=== PATIENT | female | born 1990 | race Caucasian/White ===

== ENCOUNTER → 2018-02-27 | Outpatient (CLI) | payer BC ==
--- NOTE | 2018-03-12 19:32 | EM ---
EVENT MONITOR Patient was monitored between March 02 and March 06, 2018. The rhythm strip revealed sinus mechanism with single PVCs. There was an episode of sinus tachycardia, but no evidence of significant bradycardia or sustained ventricular tachycardia. ODL / IJN: [id number] /
== END | disposition home or self-care (01) ==
LOC: RADECHMAIN 12:03
PROVIDERS: ATTEND Family Medicine
DX: I49.3 Ventricular premature depolarization (principal)
CPT/HCPCS: 93270; 93271

== ENCOUNTER 2021-03-08 06:05 | Inpatient (IN) | payer BC ==
[2021-03-08] MEDS ORDERED: METHYLERGONOVINE 0.2 MG/ML 1 ML AMP IM PRN (06:22)
[2021-03-08] MEDS ORDERED: CARBOPROST TROMETHAMINE 250 MCG/ML 1 ML AMP IM PRN (06:22)
[2021-03-08] MEDS ORDERED: LIDOCAINE 0.5% (PF) 5 MG/ML (50 ML SDV) SQ PRN (06:22)
[2021-03-08] MEDS ORDERED: TERBUTALINE 1 MG/ML VIAL SQ PRN (06:22)
[2021-03-08] MEDS ORDERED: OXYTOCIN 10 UNIT/ML 1 ML VIAL IM PRN (06:22)
[2021-03-08] MEDS ORDERED: OXYTOCIN 30 UNITS/500 ML NS 30 UNIT in SALINE 1 500ML.BAG IV SCH (06:30)
[2021-03-08] MEDS: LACTATED RINGERS 1,000 ML IV SCH ×2 (06:35→12:05)
[2021-03-08 06:50] LABS: Basophils % (A) 1 %; Eosinophils # (A) 0.1 k/uL (0-0.7); Eosinophils % (A) 1 %; HCT 39.2 % (34.0-46.0); HGB 12.7 gm/dL (11.4-16.0); Lymphocytes # (A) 2.2 k/uL (1.0-4.8); Lymphocytes % (A) 29 %; MCH 27.1 pg (25.0-35.0); MCHC 32.4 g/dL (31.0-37.0); MCV 83.6 fL (80.0-100.0); Mean Platelet Volume 9.7; Monocytes # (A) 0.5 k/uL (0-1.0); Monocytes % (A) 6 %; Neutrophils # (A) 4.5 k/uL (1.3-7.7); Neutrophils % (A) 60 %; Platelet Count 212 k/uL (150-450); Poikilocytosis Slight; RBC 4.69 m/uL (3.80-5.40); RDW 12.8 % (11.5-15.5); WBC 7.5 k/uL (3.8-10.6)
--- NOTE | 2021-03-08 08:29 | P.HPOB ---
History of Present Illness H&P Date: 03/08/21 Chief Complaint: IUP at 41-0/7 weeks This is a 30-year-old 1 para 0 at 41-0/7 weeks that presents to labor and delivery for induction of labor secondary to postdates. Patient has been receiving routine care which has been essentially uncomplicated. This morning patient notes good movement denies vaginal bleeding or loss of fluid. Patient notes irregular contractions. On bloodwork this patient is a blood type of O+, rubella status immune, hepatitis B surface antigen negative, HIV negative, RPR nonreactive, her beta strep cultures negative. Review of Systems Constitutional: Denies chills, Denies fatigue, Denies fever Ears, nose, mouth and throat: Denies headache Cardiovascular: Denies leg edema Respiratory: Denies dyspnea Gastrointestinal: Denies constipation, Denies diarrhea, Denies nausea, Denies vomiting Genitourinary: Reports Past Medical History Past Medical History: No Reported History History of Any Multi-Drug Resistant Organisms: None Reported Additional Past Surgical History / Comment(s): bunyon removal- 2017 Past Anesthesia/Blood Transfusion Reactions: No Reported Reaction Past Psychological History: No Psychological Hx Reported Smoking Status: Never smoker Past Alcohol Use History: None Reported Past Drug Use History: None Reported - Past Family History Mother Family Medical History: No Reported History Medications and Allergies Home Medications Medication Instructions Recorded Confirmed Type Clobetasol Propionate [Temovate 1 applic TOPICAL DAILY PRN 03/08/21 03/08/21 History 0.05% Oint] Pnv,Calcium 72/Iron/Folic Acid 1 each PO DAILY 03/08/21 03/08/21 History [ Plus Tablet] Allergies Allergy/AdvReac Type Severity Reaction Status Date / Time No Known Allergies Allergy Verified 03/08/21 06:20 Exam Osteopathic Statement: *. No significant issues noted on an osteopathic structural exam other than those noted in the History and Physical/Consult. 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 heart tones are noted to be category 1 and she is elyse every 2 minutes. Results Result Diagrams: 03/08/21 06:30 Assessment and Plan (1) Post-dates Current Visit: Yes Status: Acute Code(s): O48.0 - POST-TERM SNOMED Code(s): 39943799 Plan: 30-year-old at 41-0/7 weeks presents for induction of labor. Pitocin i nduction of labor is begun per hospital protocol. Options for analgesia including epidural and Stadol are discussed. Patient will consider. We'll monitor closely and anticipate spontaneous vaginal delivery later today.
[2021-03-08] MEDS ORDERED: ROPIVACAINE 100 MG, fentaNYL (PF). 200 MCG in SODIUM CHLORIDE 0.9% 76 ML EPIDURAL ONE (12:15)
[2021-03-08] MEDS ORDERED: HYDROCORTISONE 2.5% RECTAL CREAM 30 GM TUBE RECTAL PRN (17:58)
[2021-03-08] MEDS ORDERED: LANOLIN CREAM 5 GM TUBE TOPICAL PRN (17:58)
[2021-03-08] MEDS ORDERED: ZOLPIDEM 5 MG TAB PO PRN (17:58)
[2021-03-08] MEDS ORDERED: diphenhydrAMINE 25 MG CAP PO PRN (17:58)
[2021-03-08] MEDS ORDERED: BENZOCAINE/MENTHOL SPRAY 1 GM/SPRAY AEROSOL TOPICAL PRN (17:58)
[2021-03-08] MEDS ORDERED: SIMETHICONE 80 MG CHEWABLE PO PRN (17:58)
[2021-03-08] MEDS ORDERED: diphenhydrAMINE 50 MG/ML 1 ML VIAL IVP PRN ×2 (17:58)
[2021-03-08] MEDS ORDERED: diphenhydrAMINE 50 MG CAP PO PRN (17:58)
--- NOTE | 2021-03-08 17:58 | P.PROBDLV ---
Vaginal Delivery Note - . Vaginal Delivery Note: This is a 30-year-old female 1 para 0 EDC 920 07/01/1940 weeks gestation who presented this morning with postdates for induction. Artificial amniorrhexis revealed clear fluid. Oxytocin was started and titrated per hospital protocol. Group B strep cultures negative. Epidural was placed per her request. Please see dictated history and physical for details. Was called to the bedside because the primary chief order dispatcher was involved in the emergency surgery elsewhere on the unit. Perineal body was prepped and draped in usual sterile fashion. With excellent maternal expulsive efforts the infant's head delivered occiput anterior and restituted accordingly. There was no nuchal cord noted. The left or anterior shoulder was delivered easily from underneath the pubic symphysis at which time the oropharynx, nasopharynx, and external nares were bulb suctioned. Patient was officially delivered of a liveborn male at 1654 hrs. Umbilical cord was doubly clamped and ligated, he was handed to waiting nurses for evaluation where scores of 9 and 9 at one and 5 minutes respectively were given. Placenta delivered spontaneously with active management, it was inspected and noted to be intact with trivascular cord at 1656 hours. Uterus is then massaged. Careful inspection of the cervix, vagina, perineum, periurethral, and perirectal areas revealed a second-degree perineal laceration. This was injected with lidocaine and repaired in the usual fashion using repeat suture. 's weight 8 lbs. 6 oz. or 08/16/2004 grams. Patient and her are requesting circumcision further son. Total estimated blood loss 200 mL's.
[2021-03-08] MEDS ORDERED: ACETAMINOPHEN TAB 325 MG TAB PO PRN (20:44)
[2021-03-08] MEDS: IBUPROFEN 600 MG TAB PO PRN (20:52)
[2021-03-08] MEDS: SENNOSIDES-DOCUSATE SODIUM 1 EACH TAB PO SCH (20:52)
[2021-03-09 07:25] LABS: Basophils % (A) 0 %; Eosinophils % (A) 0 %; HCT 31.6 % (34.0-46.0); HGB 10.5 gm/dL (11.4-16.0); Lymphocytes # (A) 1.3 k/uL (1.0-4.8); Lymphocytes % (A) 13 %; MCH 27.6 pg (25.0-35.0); MCHC 33.2 g/dL (31.0-37.0); MCV 83.2 fL (80.0-100.0); Mean Platelet Volume 9.9; Monocytes # (A) 0.4 k/uL (0-1.0); Monocytes % (A) 4 %; Neutrophils % (A) 81 %; Platelet Count 174 k/uL (150-450); WBC 9.9 k/uL (3.8-10.6)
--- NOTE | 2021-03-09 08:01 | P.DS ---
Providers Date of admission: 03/08/21 06:05 Expected date of discharge: 03/09/21 Attending physician: Alexsandra Yeh Primary care physician: Stated None Hospital Course: This is a 30-year-old female 1 para 0 EDC 03/01/2021 at 41 weeks gestation who presented for induction for postdates . is unremarkable, blood type O+, group B strep cultures negative, rubella status immune. Please see dictated history and physical for details. Oxytocin augmentation was given. Epidural was placed. Patient went on to deliver a liveborn male infant with scores of 9 and 9 at one and 5 minutes respectively. There was a spontaneous second-degree laceration easily repaired with Rapide suture. Estimated blood loss 200 mL's. weighed 8 lbs. 6 oz. or 08/16/2004 grams. Please see dictated delivery note for details. This morning the patient is doing well. She is voiding, ambulating, passing flatus without difficulty. Vital signs are stable and she is afebrile. She is breast-feeding, prescription for breast pump has been provided. Circumcision on the has been performed. Patient is feeling well, fundus is firm and in the midline, symmetric and 18 week size. Perineal body is well ap proximated, breasts are not engorged, extremities are negative, chest is clear. Patient is judged to be in very good condition for discharge home. She will follow-up in the office in 6 weeks. I have reminded her no intercourse, tampons or douching. She will use [id number] Advil or Aleve, or Motrin as needed for pain. She will call with any fevers shakes or chills, foul smelling or copious lochia, with the passage of large blood clots, with any pain not alleviated by [id number] products, or indeed with any concerns. Contraceptive options and she will discuss this further with her primary pci security consultant in the office. Assessment: Well day #1 Patient Condition at Discharge: Good Plan - Discharge Summary Discharge Rx Participant: No New Discharge Prescriptions: No Action Pnv,Calcium 72/Iron/Folic Acid [ Plus Tablet] 1 each PO DAILY Clobetasol Propionate [Temovate 0.05% Oint] 1 applic TOPICAL DAILY PRN PRN Reason: Itching Discharge Medication List Clobetasol Propionate [Temovate 0.05% Oint] 1 applic TOPICAL DAILY PRN 03/08/21 [History] Pnv,Calcium 72/Iron/Folic Acid [ Plus Tablet] 1 each PO DAILY 03/08/21 [History] Follow up Appointment(s)/Referral(s): Alexsandra Yeh DO [Doctor of Osteopathic Medicine] - 6 Weeks Discharge Disposition: HOME SELF-CARE
[2021-03-09] MEDS: SENNOSIDES-DOCUSATE SODIUM 1 EACH TAB PO SCH ×2 (14:15→20:27)
[2021-03-09] MEDS: IBUPROFEN 600 MG TAB PO PRN (20:26)
[2021-03-10 08:20] VITALS: BP 122/68; PULSE 60; RESP 16; TEMP 98.4
--- NOTE | 2021-03-10 13:08 | P.PNOBGVD ---
Subjective - Subjective Principal diagnosis: PPD 2 Interval history: patient is doing well, lochia is moderate, breast feeding is going well. pain well controlled. Tolerating regular diet without nausea/vomiting. Patient reports: Reports appetite normal, Reports voiding normally, Reports pain well controlled, Reports ambulating normally [place]: doing well, nursing well Objective - Latest Vital Signs Latest vital signs: Vital Signs Temp Pulse Resp BP 03/10/21 08:00 98.4 F 60 16 122/68 03/10/21 00:00 98.1 F 80 14 134/87 03/09/21 16:00 98.6 F 80 16 121/86 Intake and Output 03/09/21 03/10/21 03/10/21 22:59 06:59 14:59 Other: # Voids 1 2 1 - Exam Extremities: Present: edema Abdomen: Present: normal appearance, soft Uterus: Present: normal, firm Assessment and Plan (1) Post-dates Current Visit: Yes Status: Acute Code(s): O48.0 - POST-TERM SNOMED Code(s): 22948504 (2) Status post vaginal delivery Current Visit: Yes Status: Acute Code(s): JSI1119 - SNOMED Code(s): 691835709 (3) Obstetric vaginal laceration with second degree perineal laceration Current Visit: Yes Status: Acute Code(s): O70.1 - SECOND DEGREE PERINEAL LACERATION DURING DELIVERY SNOMED Code(s): 084676476 Plan: Patient is doing well, plan discharge home with PP check in 4 weeks. over the counter motrin tylenol for pain. discharge instructions reviewed.
== END 2021-03-10 15:00 | disposition home or self-care (01) | DRG 807 ==
LOC: 4FBP 06:05
PROVIDERS: ADMIT Obstetrics & Gynecology Obstetrics; ATTEND Obstetrics & Gynecology Obstetrics
PROC: 10E0XZZ Delivery of Products of Conception, External Approach (ICD-10-PCS; principal; 2021-03-08)
PROC: 0KQM0ZZ Repair Perineum Muscle, Open Approach (ICD-10-PCS; 2021-03-08)
PROC: 10907ZC Drainage of Amniotic Fluid, Therapeutic from Products of Conception, Via Natural or Artificial Opening (ICD-10-PCS; 2021-03-08)
PROC: 3E033VJ Introduction of Other Hormone into Peripheral Vein, Percutaneous Approach (ICD-10-PCS; 2021-03-08)
DX: O70.1 Second degree perineal laceration during delivery (principal); Z37.0 Single live birth; O48.0 Post-term pregnancy; O69.5XX0 Labor and delivery complicated by vascular lesion of cord, not applicable or unspecified; Z20.822 Contact with and (suspected) exposure to COVID-19; Z3A.41 41 weeks gestation of pregnancy
CPT/HCPCS: 85025; 86850; 86900; 86901

== ENCOUNTER 2022-04-25 16:44 | Emergency (ER) | payer BC ==
[2022-04-25 16:48] VITALS: TEMP 98.5
[2022-04-25 17:39] LABS: Basophils % (A) 0 %; Eosinophils # (A) 0.1 k/uL (0-0.7); Eosinophils % (A) 1 %; HCT 39.5 % (34.0-46.0); HGB 13.9 gm/dL (11.4-16.0); Lymphocytes # (A) 1.8 k/uL (1.0-4.8); Lymphocytes % (A) 22 %; MCH 29.8 pg (25.0-35.0); MCHC 35.1 g/dL (31.0-37.0); Monocytes # (A) 0.3 k/uL (0-1.0); Monocytes % (A) 4 %; Neutrophils # (A) 6.1 k/uL (1.3-7.7); Neutrophils % (A) 72 %; Platelet Count 257 k/uL (150-450); RBC 4.64 m/uL (3.80-5.40); WBC 8.4 k/uL (3.8-10.6)
--- NOTE | 2022-04-25 18:50 | US ---
EXAMINATION TYPE: Transabdominal DATE OF EXAM: 04/25/2022 6:06 PM COMPARISON: NONE CLINICAL HISTORY: bleeding. Heavy bleeding with clots x 2 hours. Pt states she is roughly 7 weeks pre gnant. EXAM PERFORMED: Transvaginal (TV) and Transabdominal (TA) EXAM MEASUREMENTS: GESTATIONAL AGE / DATING Physician Established: Not yet established Dates by LMP: LMP unknown Dates by First Scan: No previous this is first scan Dates by Current Scan for: No IUP seen at this time MATERNAL ANATOMY Uterus: 10.1 x 4.9 x 4.1cm Right Ovary: 3.6 x 1.5 x 2.2cm Left Ovary: 4.4 x 2.5 x 2.6 cm Post CDS / Adnexa: Small amount of free fluid in cul de sac Presence of free fluid: Trace amount Presence of corpus luteal cyst: Yes in left ovary measuring 2.2 x 2.0 x 1.9cm GESTATION / SURVEY CRL: Not vis. MSD: Not vis. Yolk Sac (normal less than 6mm): Not vis. IUP: No IUP seen at this time Date of LMP: Unknown Beta HcG (if available): N/A Transabdominally the cervix appeared to have fluid in it. Pt went to the bathroom to empty bladder an d 10 minutes later transvaginally the cervix appeared to have no fluid. Endometrium is heterogeneous with cystic structures inside. No evidence of IUP. IMPRESSION: Heterogenous endometrium without evidence of intrauterine gestational sac, correlate for positive B-h CG. This can be seen in early , ectopic and spontaneous . Follow up pelvic ultrasound in 5-7 days and serial beta hCG studies are recommended.
--- NOTE | 2022-04-25 19:17 | ED ---
Female Urogenital HPI - General Source: patient Mode of arrival: ambulatory Limitations: no limitations <Komal Alejo - Last Filed: 05/03/22 22:43> <Royce Metzger - Last Filed: 05/17/22 19:27> - General Chief complaint: Vaginal Bleeding Stated complaint: Vaginal bleeding-7 weeks preg Time Seen by Provider: 04/25/22 16:50 - History of Present Illness Initial comments: Patient is a pleasant 31-year-old female presenting to the emergency room with complaints of known at 7 weeks gestation with vaginal bleeding ongoing for approximately 1 week. She was seen in her [employer] office in which she underwent an ultrasound which she was advised that a gestational sac was seen but it was too early in the to obtain heart tones. She has continued to have bleeding which has intensified with clots presenting today and was advised by her OB to present to the emergency room. This is her per second her first resulted in a healthy child without complications. She has no other significant past medical history except occasional PVCs. (Komal Alejo) - Related Data Home Medications Medication Instructions Recorded Confirmed Clobetasol Propionate [Temovate 1 applic TOPICAL DAILY PRN 03/08/21 03/08/21 0.05% Oint] Vit No.180/Iron/Folic 1 each PO DAILY 03/08/21 03/08/21 [ Plus Tablet] Allergies Allergy/AdvReac Type Severity Reaction Status Date / Time No Known Allergies Allergy Verified 04/25/22 16:48 Review of Systems ROS Other: All systems not noted in ROS Statement are negative. <Komal Alejo - Last Filed: 05/03/22 22:43> ROS Other: All systems not noted in ROS Statement are negative. <Royce Metzger - Last Filed: 05/17/22 19:27> ROS Statement: Those systems with pertinent positive or pertinent negative responses have been documented in the HPI. Past Medical History Past Medical History: No Reported History Additional Past Medical History / Comment(s): PVC's History of Any Multi-Drug Resistant Organisms: None Reported Additional Past Surgical History / Comment(s): bunyon removal- 2018 Past Anesthesia/Blood Transfusion Reactions: No Reported Reaction Past Psychological History: No Psychological Hx Reported Smoking Status: Never smoker Past Alcohol Use History: None Reported Past Drug Use History: None Reported - Past Family History Mother Family Medical History: No Reported History <Komal Alejo - Last Filed: 05/03/22 22:43> General Exam Limitations: no limitations General appearance: alert, in no apparent distress Head exam: Present: atraumatic, normocephalic, normal inspection Eye exam: Present: normal appearance, PERRL, EOMI. Absent: scleral icterus, conjunctival injection, periorbital swelling ENT exam: Present: normal exam, mucous membranes moist Neck exam: Present: normal inspection, full ROM Respiratory exam: Present: normal lung sounds bilaterally. Absent: respiratory distress, wheezes, rales, rhonchi, stridor Cardiovascular Exam: Present: normal rhythm, tachycardia (Mild), normal heart sounds. Absent: systolic murmur, diastolic murmur, rubs, gallop, clicks GI/Abdominal exam: Present: soft, normal bowel sounds. Absent: distended, tenderness, guarding, rebound, rigid Extremities exam: Present: normal inspection, full ROM. Absent: pedal edema, joint swelling Back exam: Present: normal inspection, full ROM Neurological exam: Present: alert, oriented X3, CN II-XII intact Psychiatric exam: Present: normal affect, normal mood Skin exam: Present: warm, dry, intact, normal color. Absent: rash <Komal Alejo - Last Filed: 05/03/22 22:43> Course Vital Signs 04/25/22 04/25/22 16:46 19:58 Temperature 98.5 F Pulse Rate 122 H 98 Respiratory 22 18 Rate Blood Pressure 131/82 136/89 O2 Sat by Pulse 99 97 Oximetry Medical Decision Making - Lab Data Result diagrams: 04/25/22 17:27 - Radiology Data Radiology results: report reviewed, image reviewed <Komal Alejo - Last Filed: 05/03/22 22:43> - Lab Data Result diagrams: 04/25/22 17:27 <Royce Metzger - Last Filed: 05/17/22 19:27> - Medical Decision Making 31-year-old female presenting with vaginal bleeding ongoing for approximately 1 week with increase of bleeding and clot formation today directed to the emergency room by her [employer]. Will proceed with possible threatened workup with serum quantitative hCG, CBC, and Rh typing, along with OB ultrasound. CBC unremarkable, blood type O+, quantitative hCG 13,058 OB ultrasound reveals no intrauterine with recommended follow-up pelvic ultrasound in 5-7 days along with serial beta hCG studies. No need for RhoGAM, IV hydration further diagnostic imaging, further laboratory studies at this time. Will discharge home in stable condition with prescription for repeat serum beta hcg levels in 48 hours. Encouraged use of Tylenol or ibuprofen as needed for pain. Advise follow-up with her primary care provider and [employer]. Case discussed with Dr. Mcclellan (Komal Alejo) - Lab Data Lab Results 04/25/22 04/25/22 04/25/22 Range/Units 17:27 17:27 17:27 WBC 8.4 (3.8-10.6) k/uL RBC 4.64 (3.80-5.40) m/uL Hgb 13.9 (11.4-16.0) gm/dL Hct 39.5 (34.0-46.0) % MCV 85.0 (80.0-100.0) fL MCH 29.8 (25.0-35.0) pg MCHC 35.1 (31.0-37.0) g/dL RDW 12.0 (11.5-15.5) % Plt Count 257 (150-450) k/uL MPV 8.0 Neutrophils % 72 % Lymphocytes % 22 % Monocytes % 4 % Eosinophils % 1 % Basophils % 0 % Neutrophils # 6.1 (1.3-7.7) k/uL Lymphocytes # 1.8 (1.0-4.8) k/uL Monocytes # 0.3 (0-1.0) k/uL Eosinophils # 0.1 (0-0.7) k/uL Basophils # 0.0 (0-0.2) k/uL HCG, Quant 65373.3 mIU/mL Blood Type O Positive Blood Type Recheck O Pos Bld Type Recheck Status No - Radiology Data OB ultrasound less than 14 weeks transvaginal impression by radiologist that her generous endometrium without evidence of intrauterine gestational sac, correlate for positive beta hCG. This can be seen in early , ectopic or spontaneous . Follow-up pelvic ultrasound in 5-7 days and serial beta hCG studies are recommended (Komal Alejo) Disposition Is patient prescribed a controlled substance at d/c from ED?: No Time of Disposition: 19:17 <Komal Alejo - Last Filed: 05/03/22 22:43> <Royce Metzger - Last Filed: 05/17/22 19:27> Clinical Impression: in first trimester Disposition: HOME SELF-CARE Condition: Stable Instructions (If sedation given, give patient instructions): Miscarriage (ED) Additional Instructions: Please utilize Tylenol or Motrin as needed for any pelvic cramping. Please complete follow-up blood testing in 2 days to recheck hcg levels. Please follow- up with your primary care provider. Please return to the Emergency Department if symptoms worsen or any other concerns. Referrals: Alexsandra Yeh, DO [Primary Care Provider] - 1-2 days
[2022-04-25 19:59] VITALS: BP 136/89; PULSE 98; RESP 18
== END 2022-04-25 20:00 | disposition home or self-care (01) ==
LOC: EC 16:44
DX: O03.9 Complete or unspecified spontaneous abortion without complication (principal); Z3A.01 Less than 8 weeks gestation of pregnancy
CPT/HCPCS: 36415; 76801; 76817; 84702; 85025; 86900; 86901; 99284

== ENCOUNTER 2023-08-08 16:59 | Inpatient (IN) | payer BC ==
[2023-08-08] MEDS ORDERED: OXYTOCIN 10 UNIT/ML 1 ML VIAL IM PRN (18:00)
[2023-08-08] MEDS ORDERED: METHYLERGONOVINE 0.2 MG/ML 1 ML AMP IM PRN (18:00)
[2023-08-08] MEDS ORDERED: CARBOPROST TROMETHAMINE 250 MCG/ML 1 ML AMP IM PRN (18:00)
[2023-08-08] MEDS ORDERED: TRANEXAMIC 1,000 MG/100ML-NACL 1,000 MG in EMPTY BAG 1 BAG IV PRN (18:00)
[2023-08-08] MEDS ORDERED: miSOPROStoL 200 MCG TAB PO PRN (18:00)
[2023-08-08] MEDS ORDERED: TERBUTALINE 1 MG/ML VIAL SQ PRN (18:00)
[2023-08-08] MEDS: LACTATED RINGERS 1,000 ML IV SCH (20:00)
[2023-08-08 20:54] LABS: Basophils # (A) 0.1 k/uL (0-0.2); Basophils % (A) 0 %; Eosinophils % (A) 0 %; HCT 32.8 % (34.0-46.0); HGB 10.5 gm/dL (11.4-16.0); Hypochromasia Moderate; Lymphocytes % (A) 19 %; MCH 23.7 pg (25.0-35.0); MCV 74.1 fL (80.0-100.0); Mean Platelet Volume 9.7; Microcytosis Slight; Monocytes # (A) 0.3 k/uL (0-1.0); Monocytes % (A) 3 %; Neutrophils # (A) 8.2 k/uL (1.3-7.7); Neutrophils % (A) 76 %; Platelet Count 213 k/uL (150-450); Poikilocytosis Slight; RBC 4.43 m/uL (3.80-5.40); RDW 14.1 % (11.5-15.5); WBC 10.8 k/uL (3.8-10.6)
[2023-08-09] MEDS: OXYTOCIN 30 UNITS/500 ML NS 30 UNIT in SALINE 1 500ML.BAG IV SCH (06:11)
[2023-08-09] MEDS ORDERED: fentaNYL (PF) 50 MCG/ML 5 ML AMP ONE (09:49)
[2023-08-09] MEDS ORDERED: SODIUM CHLORIDE 0.9% 250 ML BAG ONE (09:49)
[2023-08-09] MEDS ORDERED: ROPIVACAINE 5 MG/ML 30 ML VIAL ONE (09:49)
[2023-08-09] MEDS: LIDOCAINE 0.5% (PF) 5 MG/ML (50 ML SDV) SQ PRN (12:49)
[2023-08-09] MEDS ORDERED: ZOLPIDEM 5 MG TAB PO PRN (12:50)
[2023-08-09] MEDS ORDERED: diphenhydrAMINE 50 MG CAP PO PRN (12:50)
[2023-08-09] MEDS ORDERED: HYDROCORTISONE 2.5% RECTAL CREAM 30 GM TUBE RECTAL PRN (12:50)
[2023-08-09] MEDS ORDERED: diphenhydrAMINE 25 MG CAP PO PRN (12:50)
[2023-08-09] MEDS ORDERED: BENZOCAINE/MENTHOL SPRAY 1 GM/SPRAY AEROSOL TOPICAL PRN (12:50)
[2023-08-09] MEDS ORDERED: SIMETHICONE 80 MG CHEWABLE PO PRN (12:50)
[2023-08-09] MEDS ORDERED: ACETAMINOPHEN TAB 325 MG TAB PO PRN (12:50)
[2023-08-09] MEDS ORDERED: LANOLIN CREAM 1 GM TUBE TOPICAL PRN (12:50)
--- NOTE | 2023-08-09 12:59 | P.PROBDLV ---
Vaginal Delivery Note - . Vaginal Delivery Note: 33-year-old G2, P1 at 40-0/7 weeks was admitted last evening for observation. Patient was had category 1 heart tones through the night Pitocin induction of labor was begun early this morning. Patient underwent amniotomy and clear fluid was obtained. Patient became uncomfortable and requested epidural placement. Epidural was placed without difficulty by the anesthesia department. Patient made good progress toward complete. Once patient was completely dila maury she began pushing. Patient had a normal spontaneous vaginal delivery of a viable female at 1203, weight of 8 pounds 6 ounces, Apgars of 9 and 9 at 1 and 5 minutes respectively. Infant was delivered in a right occiput anterior presentation with a left compound hand. After 2-minute delay the umbilical cord was doubly clamped and cut. Spontaneous cry was noted at . Placenta was d elivered spontaneously intact with a three-vessel cord being noted. On inspection the patient's vaginal vault a second-degree midline laceration was appreciated. Laceration was injected with lidocaine and repaired in usual fashion with 3-0 Rapide. Hemostasis was noted after closure. Rectal exam was performed and found to be intact with no defects. Estimated blood loss 50 cc. Bladder was drained for 100 cc yellow in nature. Uterus was noted be firm below the umbilicus. All counts were noted be correct x 2. Patient and infant tolerated delivery well and are resting comfortably.
[2023-08-09] MEDS: IBUPROFEN 600 MG TAB PO SCH (13:02)
--- NOTE | 2023-08-09 13:02 | P.HPOB ---
History of Present Illness H&P Date: 08/09/23 Chief Complaint: IUP at 40-0/7 weeks This is a 33 yo at 40-0/7 weeks that presented to labor and delivery from the office yesterday after low baseline was appreciated, NST was initiated and low baseline continued. Patient was sent to OB triage for extended steff toring. Patient upon presentation to labor and delivery had a reassuring NST category 1 occasionally category 2, IV fluids and position changes were initiated. Patient was observed overnight, initially patient was noted to be elyse every 2 to 3 minutes but not uncomfortable. heart tones were noted to be category 1 through the night. Pitocin induction of labor was begun this morning. Patient had been receiving routine care with myself which have been essentially uncomplicated. On blood work this patient has a blood type of O+, rubella status immune, hepatitis B surface engine negative, HIV negative, RPR is nonreactive, group B strep culture is negative. 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 #2 current Review of Systems Constitutional: Denies chills, Denies fatigue, Denies fever Ears, nose, mouth and throat: Denies headache Cardiovascular: Denies leg edema Respiratory: Denies dyspnea Gastrointestinal: Denies constipation, Denies diarrhea, Denies nausea, Denies vomiting Genitourinary: Reports Past Medical History Past Medical History: No Reported History Additional Past Medical History / Comment(s): PVC's History of Any Multi-Drug Resistant Organisms: None Reported Additional Past Surgical History / Comment(s): bunyon removal- 2018 Past Anesthesia/Blood Transfusion Reactions: No Reported Reaction Past Psychological History: No Psychological Hx Reported Smoking Status: Never smoker Past Alcohol Use History: None Reported Past Drug Use History: None Reported - Past Family History Mother Family Medical History: No Reported History Medications and Allergies Home Medications Medication Instructions Recorded Confirmed Type Vit No.180/Iron/Folic 1 each PO DAILY 03/08/21 08/08/23 History [ Plus Tablet] Allergies Allergy/AdvReac Type Severity Reaction Status Date / Time No Known Allergies Allergy Verified 08/08/23 17:08 Exam Osteopathic Statement: *. No significant issues noted on an osteopathic structural exam other than those noted in the History and Physical/Consult. Vital Signs Temp Pulse BP 08/08/23 18:04 97.0 F L 79 138/83 Intake and Output 08/08/23 08/09/23 08/09/23 22:59 06:59 14:59 Other: # Voids 1 1 Weight 78.925 kg Targeted physical exam was performed on this date, in general this is a well- nourished well-developed female in no acute distress, breathing is no nlabored, heart has a regular rate and rhythm, abdomen is gravid and appropriate for gestational age, on cervical exam she is 4/70/-2 station amniotomy was performed and clear fluid was obtained. heart tones noted to be category 1 and she is elyse irregularly. Results Result Diagrams: 08/08/23 20:37 Abnormal Lab Results - Last 24 Hours (Table) 08/08/23 Range/Units 20:37 WBC 10.8 H (3.8-10.6) k/uL Hgb 10.5 L (11.4-16.0) gm/dL Hct 32.8 L (34.0-46.0) % MCV 74.1 L (80.0-100.0) fL MCH 23.7 L (25.0-35.0) pg Neutrophils # 8.2 H (1.3-7.7) k/uL Assessment and Plan (1) Term Current Visit: Yes Status: Acute Code(s): Z34.90 - ENCNTR FOR SUPRVSN OF NORMAL , UNSP, UNSP TRIMESTER SNOMED Code(s): 59096637 Plan: 33-year-old G2, P1 at 40-0/7 weeks presented yesterday for observation given low baseline and category 2 heart tones. Patient had category 1 heart tones through the night, contractions were irregular. Pitocin augmentation of labor was begun this morning per hospital protocol. Amniotomy was performed and clear fluid was obtained. Patient does desire epidural anesthesia will be notified when she request. Anticipate spontaneous vaginal delivery later today.
[2023-08-09 16:02] VITALS: RESP 16
[2023-08-09] MEDS: SENNOSIDES-DOCUSATE SODIUM 1 EACH TAB PO SCH (20:16)
[2023-08-10 07:17] LABS: Basophils # (A) 0.1 k/uL (0-0.2); Basophils % (A) 1 %; Eosinophils % (A) 0 %; HCT 28.7 % (34.0-46.0); HGB 9.2 gm/dL (11.4-16.0); Hypochromasia Moderate; Lymphocytes # (A) 1.8 k/uL (1.0-4.8); Lymphocytes % (A) 19 %; MCH 23.7 pg (25.0-35.0); MCHC 32.1 g/dL (31.0-37.0); MCV 73.7 fL (80.0-100.0); Mean Platelet Volume 9.3; Microcytosis Slight; Monocytes # (A) 0.4 k/uL (0-1.0); Monocytes % (A) 5 %; Neutrophils % (A) 74 %; Platelet Count 175 k/uL (150-450); Poikilocytosis Slight; RDW 14.4 % (11.5-15.5); WBC 9.5 k/uL (3.8-10.6)
[2023-08-10 09:35] VITALS: BP 112/76; PULSE 81; TEMP 97.7
--- NOTE | 2023-08-10 09:56 | P.DS ---
Providers Date of admission: 08/08/23 17:56 Expected date of discharge: 08/10/23 Attending physician: Alexsandra Yeh Primary care physician: Stated None - Discharge Diagnosis(es) (1) Term Current Visit: Yes Status: Acute (2) Obstetric vaginal laceration with second degree perineal laceration Current Visit: No Status: Acute (3) Status post vaginal delivery Current Visit: No Status: Acute Hospital Course: 33-year-old G2 now P2 that presented to labor and delivery on 08/08 for extended monitoring after a NST revealed bradycardia with heart tones in the teens. Patient was sent over and heart tones were noted to be category 2, IV fluids were initiated and heart tones resolved to category 1. Patient was scheduled for induction on . That morning Pitocin induction of labor was begun per hospital protocol. Patient underwent amniotomy and clear fluid was obtained. Patient did request epidural and epidural was placed without difficulty by the anesthesia department. Patient progressed to complete began pushing and had a normal spontaneous vaginal delivery of a viable female at 1203, weight of 8 pounds 6 ounces. Patient did sustain a second-degree midline laceration during delivery which was repaired in the usual fashion with 3-0 Rapide. Patient has done well . This day #1 she is ambulating and voiding without difficulty. She is tolerating regular diet without nausea or vomiting. She states her pain is well-controlled. She is breast-feeding with some difficulty. Her lochia is minimal to moderate. She would like discharge home at 24 hours if possible. Patient Condition at Discharge: Good Plan - Discharge Summary New Discharge Prescriptions: No Action Vit No.180/Iron/Folic [ Plus Tablet] 1 each PO DAILY Discharge Medication List Vit No.180/Iron/Folic [ Plus Tablet] 1 each PO DAILY 03/08/21 [History] Follow up Appointment(s)/Referral(s): Alexsandra Yeh DO [Doctor of Osteopathic Medicine] - 6 Weeks Patient Instructions/Handouts: Vaginal Delivery (DC), Vaginal Delivery (GEN) Activity/Diet/Wound Care/Special Instructions: No intercourse, tampons or douching. No heavy lifting greater than a gallon of milk. No driving for two weeks. Call with any fever, shakes or chills, with any pain not alleviated by over the counter meds, or with any quesions or concerns. Discharge Disposition: HOME SELF-CARE
== END 2023-08-10 12:48 | disposition home or self-care (01) | DRG 807 ==
LOC: FBPOP 16:59 → 4FBP 17:56
PROVIDERS: ADMIT Obstetrics & Gynecology Obstetrics; ATTEND Obstetrics & Gynecology Obstetrics
PROC: 10907ZC Drainage of Amniotic Fluid, Therapeutic from Products of Conception, Via Natural or Artificial Opening (ICD-10-PCS; principal; 2023-08-09)
PROC: 3E033VJ Introduction of Other Hormone into Peripheral Vein, Percutaneous Approach (ICD-10-PCS; principal; 2023-08-09)
PROC: 10E0XZZ Delivery of Products of Conception, External Approach (ICD-10-PCS; principal; 2023-08-09)
PROC: 4A0HXCZ Measurement of Products of Conception, Cardiac Rate, External Approach (ICD-10-PCS; principal; 2023-08-09)
PROC: 0KQM0ZZ Repair Perineum Muscle, Open Approach (ICD-10-PCS; principal; 2023-08-09)
DX: O76 Abnormality in fetal heart rate and rhythm complicating labor and delivery (principal); Z37.0 Single live birth; O48.0 Post-term pregnancy; O70.1 Second degree perineal laceration during delivery; Z3A.40 40 weeks gestation of pregnancy; Z86.79 Personal history of other diseases of the circulatory system; Z28.310 Unvaccinated for COVID-19
CPT/HCPCS: 59025; 85025; 86850; 86900; 86901; 99213